=== PATIENT | male | born 1960 | race African-American/Black ===

== ENCOUNTER → 2019-01-12 | Outpatient (CLI) | payer MEDICAID ==
[2015-01-19 15:49] VITALS: BP 117/75
[~2019-01-12] MED LIST: BUDE10.22 IH; CARV12.5 PO; CELE200C PO; CYCL10TA2 PO; TRIA1CAP3 PO
--- NOTE | 2019-01-12 15:12 | RAD ---
EXAM: Right knee, 3 views. HISTORY: Pain. COMPARISON: None. FINDINGS: 3 views of the right knee are obtained. There is no acute fracture, dislocation or subluxation. There is no joint effusion. There is a tiny ossicle overlying the medial compartment, possibly a tiny joint loose body. IMPRESSION: 1. No acute osseous finding. 2. Possible tiny medial compartment joint loose body. Electronically signed by: Oneida Hurtado MD (01/12/2019 3:09 PM) [id number]
== END | disposition home or self-care (01) ==
LOC: RAD 13:13
PROVIDERS: ATTEND Surgery
DX: M25.561 Pain in right knee (principal); W18.39XA Other fall on same level, initial encounter; Y93.89 Activity, other specified; Y92.89 Other specified places as the place of occurrence of the external cause; Y99.8 Other external cause status
CPT/HCPCS: 73562

== ENCOUNTER 2021-09-06 17:17 | Emergency (ER) | payer MEDICAID ==
[~2021-09-06] VITALS: Ht 182.9 cm; Wt 88.7 kg
[~2021-09-06 17:17] MED LIST changes: +CYCL10TA19 PO; -CYCL10TA2 PO
[2021-09-06 17:22] VITALS: BP 134/84
[2021-09-06] MEDS ORDERED: LIDOCAINE 2%/EPI 1:100,000 20 ML VIAL. INJ ONE (17:45)
--- NOTE | 2021-09-06 18:24 | RAD ---
Exam: CT head and cervical spine INDICATION: Fall and jaw laceration TECHNIQUE: Sequential axial images through the head and cervical spine were obtained without the admi nistration of IV contrast. Exposure: One or more of the following in the visualized dose reduction techniques were utilized for this examination: 1. Automated exposure control 2. Adjustment of the MA and/or KV according to patient size 3. Use of iterative of reconstructive technique Comparisons: None FINDINGS: Head: No focal parenchymal lesion or hemorrhage is identified. There is no midline shift or sulcal effaceme nt. No acute vascular territory infarction is identified. Membreno-white distinction is preserved. The ventricular system is within normal limits without compression hydrocephalus. The basal cisterns are well maintained. The visualized portions of the paranasal sinuses and mastoid air cells are well-pneumatized. No acute fractures. Cervical spine: Straightening of cervical spine which may positional. Vertebral body heights are well-maintained. Fracture through the cervical spine is not identified. Degenerative disease in the cervical spine greatest at C5-C6 and C6-C7. Mild bilateral facet arthropa thy is also noted in the cervical spine. Visualized paraspinal soft tissues are unremarkable. IMPRESSION: 1. No acute intracranial abnormality. 2. Negative CT C-spine for acute traumatic injury. Electronically signed by: Brenda Boggs MD (09/06/2021 6:22 PM) [facility]
--- NOTE | 2021-09-06 18:29 | PHYS DOC ---
Past Medical History Past Medical History: Hypertension, Other Additional Past Medical Histor: chronic back pain Past Surgical History: No Surgical History Smoking Status: Current Every Day Smoker Alcohol Use: Occasionally Drug Use: None General Adult EDM: Chief Complaint: LACERATION/AVULSION HPI: HPI: Patient is a 61-year-old male who presents today with a laceration to his face. Patient states that he was outside and he fell and hit the corner of a trash can, and lacerated his left lower jaw area. Patient states this occurred a couple hours prior to coming in, said he took 2 hydrocodone's at home and put some Band-Aid on it but it continued to bleed so he presents here to the emergency department for further evaluation and management. Patient denies of loss of consciousness, patient is unsure when his last tetanus shot was. Review of Systems: Review of Systems: Constitutional: Denies fever or chills. [] Eyes: Denies change in visual acuity. [] HENT: Denies nasal congestion or sore throat. [] Respiratory: Denies cough or shortness of breath. [] Cardiovascular: Denies chest pain or edema. [] GI: Denies abdominal pain, nausea, vomiting, bloody stools or diarrhea. [] : Denies dysuria. [] Musculoskeletal: Denies back pain or joint pain. [] Integument: LACERATION TO LOWER JAW Neurologic: Denies headache, focal weakness or sensory changes. [] Endocrine: Denies polyuria or polydipsia. [] Lymphatic: Denies swollen glands. [] Psychiatric: Denies depression or anxiety. [] Heart Score: C/O Chest Pain: No Risk Factors: Risk Factors: DM, Current or recent (<one month) smoker, HTN, HLP, family history of CAD, obesity. Risk Scores: Score 0 - 3: 2.5% MACE over next 6 weeks - Discharge Home Score 4 - 6: 20.3% MACE over next 6 weeks - Admit for Clinical Observation Score 7 - 10: 72.7% MACE over next 6 weeks - Early Invasive Strategies Current Medications: Current Medications Medications (Trade) Dose Ordered Sig/Shruthi Start Time Stop Time Status Last Admin Dose Admin Diphtheria/ Tetanus/Acell Pertussis (Boostrix) 0.5 ml ONCE ONCE 09/06/21 18:30 09/06/21 18:31 UNV Lidocaine/ Epinephrine (LIDOCAINE 2%-EPI 1:100,000 multi-dose) 20 ml 1X ONCE 09/06/21 17:45 09/06/21 17:46 DC 09/06/21 17:41 20 ML Allergies: Allergies: Allergies Coded Allergies Type Severity Reaction Last Updated Verified No Known Drug Allergies 04/05/13 No Physical Exam: PE: Constitutional: Well developed, well nourished, mild distress, non-toxic appearance. [] HENT: Patient's face patient is able to smile, no numbness or tingling around the laceration on the left lower jaw Eyes: PERRLA, EOMI, conjunctiva normal, no discharge. [] Neck: Normal range of motion, no tenderness, supple, no stridor. [] Cardiovascular:Heart rate regular rhythm, no murmur [] Lungs & Thorax: Bilateral breath sounds clear to auscultation [] Abdomen: Bowel sounds normal, soft, no tenderness, no masses, no pulsatile masses. [] Skin: 3 cm laceration noted on the left lower jaw, wound is gaping, is oozing blood. Back: No tenderness, no CVA tenderness. [] Extremities: No tenderness, no cyanosis, no clubbing, ROM intact, no edema. [] Neurologic: Alert and oriented X 3, normal motor function, normal sensory function, no focal deficits noted. [] Psychologic: Affect normal, judgement normal, mood anxious. [] Current Patient Data: Vital Signs: Vital Signs Date Time Temp Pulse Resp B/P (MAP) Pulse Ox O2 Delivery O2 Flow Rate FiO2 09/06/21 17:22 97.5 71 18 134/84 (101) 96 Room Air 97.5 EKG: EKG: [] Radiology/Procedures: Radiology/Procedures: REASON: FALL AND JAW LACERATION PROCEDURE: CT HEAD AND CERVICAL SPINE WO Exam: CT head and cervical spine INDICATION: Fall and jaw laceration TECHNIQUE: Sequential axial images through the head and cervical spine were obtained without the administration of IV contrast. Exposure: One or more of the following in the visualized dose reduction techniques were utilized for this examination: 1. Automated exposure control 2. Adjustment of the MA and/or KV according to patient size 3. Use of iterative of reconstructive technique Comparisons: None FINDINGS: Head: No focal parenchymal lesion or hemorrhage is identified. There is no midline shift or sulcal effacement. No acute vascular territory infarction is identified. Membreno-white distinction is preserved. The ventricular system is within normal limits without compression hydrocephalus. The basal cisterns are well maintained. The visualized portions of the paranasal sinuses and mastoid air cells are well- pneumatized. No acute fractures. Cervical spine: Straightening of cervical spine which may positional. Vertebral body heights are well-maintained. Fracture through the cervical spine is not identified. Degenerative disease in the cervical spine greatest at C5-C6 and C6-C7. Mild bilateral facet arthropathy is also noted in the cervical spine. Visualized paraspinal soft tissues are unremarkable. IMPRESSION: 1. No acute intracranial abnormality. 2. Negative CT C-spine for acute traumatic injury. Electronically signed by: Brenda Boggs MD (09/06/2021 6:22 PM) [facility] REASON: LACERATION LEFT JAW PROCEDURE: CT MAXILLOFACIAL WO CONTRAST Exam: CT head and cervical spine INDICATION: Fall and jaw laceration TECHNIQUE: Sequential axial images through the head and cervical spine were obtained without the administration of IV contrast. Exposure: One or more of the following in the visualized dose reduction techniques were utilized for this examination: 1. Automated exposure control 2. Adjustment of the MA and/or KV according to patient size 3. Use of iterative of reconstructive technique Comparisons: None FINDINGS: Head: No focal parenchymal lesion or hemorrhage is identified. There is no midline shift or sulcal effacement. No acute vascular territory infarction is identified. Membreno-white distinction is preserved. The ventricular system is within normal limits without compression hydroceph alus. The basal cisterns are well maintained. The visualized portions of the paranasal sinuses and mastoid air cells are well-pneumatized. No acute fractures. Cervical spine: Straightening of cervical spine which may positional. Vertebral body heights are well-maintained. Fracture through the cervical spine is not identified. Degenerative disease in the cervical spine greatest at C5-C6 and C6-C7. Mild bilateral facet arthropathy is also noted in the cervical spine. Visualized paraspinal soft tissues are unremarkable. IMPRESSION: 1. No acute intracranial abnormality. 2. Negative CT C-spine for acute traumatic injury. Electronically signed by: Brenda Boggs MD (09/06/2021 6:22 PM) [facility] [] Course & Med Decision Making: Course & Med Decision Making Pertinent Labs and Imaging studies reviewed. (See chart for details) 1830 patient was placed in a supine position, I was infiltrating lidocaine with epinephrine into the wound, patient had me stop, patient states that he cannot do it anymore he does not wish to continue with the suture repair. He is asking that we can sedate him for this procedure and I said that the risk outweigh the benefits of that, and the fact that the patient had 2 hydrocodone's before he came in makes him even at greater risk to try to get the appropriate amount of sedation to take care of him. I did did talk to the patient and I stated that I would step out of the room for him to relax and that I will come back in and talk with him about our plan of care. 1854 let was applied to the wound by the nursing staff. Patient tolerated well. 1949 Indication: Procedure: Patient was placed in a supine position, the latter was applied to the nurse earlier did provide proper anesthetizing of the wound, wound was then irrigated with 120 mL of normal saline the wound was then cleansed with Betadine solution, two 4-0 Vicryl sutures were used to well approximate the wound, six 6-0 Ethilon interrupted sutures were used to close the wound, bacitracin was placed on the wound patient is requesting that no dressing be placed on the wound at this time. Total repaired wound length: 3CM The patient tolerated the procedure WELL Complications:NONE 2014 patient will be discharged home patient is instructed to cleanse wound twice daily with mild soap and water, watch for any signs and symptoms of infection which may include redness, warmth, swelling, or development of a fever. Patient is to return here in 5 days to have sutures removed. Geoff Disclaimer: Geoff Disclaimer: This electronic medical record was generated, in whole or in part, using a voice recognition dictation system. Departure Departure Impression: Primary Impression: Laceration of face, complex Qualified Codes: S01.91XA - Laceration without foreign body of unspecified part of head, initial encounter Disposition: HOME / SELF CARE / HOMELESS Condition: STABLE Referrals: KAREN LOWE (PCP) Patient Instructions: Facial Laceration Additional Instructions: Wash the wound twice daily with mild soap and water do not rub pat dry You are okay to shower and bathe but no submerging of the wound Tylenol and/or ibuprofen as needed for pain Return to the emergency department or follow-up with your primary care physician in 5 days to have the sutures removed Return to the emergency department earlier should you develop redness, swelling, warmth, drainage, or development of a fever. GRACIA BERUMEN MAIL WEIGHER September 06, 2021 18:29
[2021-09-06] MEDS ORDERED: DIPHTH,PERTUSS(ACELL),TET TOX 0.5 ML DISP.SYRIN. VAX IM ONE (18:30)
[2021-09-06] MEDS ORDERED: LIDOCAINE/EPI/TETRACAINE TOPICAL GEL 3 ML. TP ONE (18:45)
[2021-09-06] MEDS ORDERED: BACITRACIN TOPICAL OINT PACKET. TP ONE (20:30)
== END 2021-09-06 20:40 | disposition home or self-care (01) ==
LOC: ER 17:17
DX: S01.91XA Laceration without foreign body of unspecified part of head, initial encounter (principal); I10 Essential (primary) hypertension; G89.29 Other chronic pain; F17.200 Nicotine dependence, unspecified, uncomplicated; W18.09XA Striking against other object with subsequent fall, initial encounter; Y93.89 Activity, other specified; Y92.89 Other specified places as the place of occurrence of the external cause; Y99.8 Other external cause status
CPT/HCPCS: 12013; 70450; 70486; 72125; 90471; 90715; 99284; J3490